=== PATIENT | female | born 1955 | race African-American/Black ===

== ENCOUNTER 2018-09-16 16:05 | Emergency (ER) | payer SELFPAY ==
[~2018-09-16] VITALS: Ht 170.2 cm; Wt 86.4 kg
[2018-09-16 16:09] VITALS: BP 191/81; PULSE 76; TEMP 98.9
[2018-09-16] MEDS ORDERED: GLUCOPHAGE500 MG/TAB PO (16:24)
[2018-09-16] MEDS ORDERED: NORCO 325 MG-51 TAB PO (17:21)
[2018-09-16] MEDS ORDERED: FLEXERIL 1010 MG/TAB PO (17:21)
== END 2018-09-16 17:42 | disposition home or self-care (01) ==
LOC: COL.ER 16:05
DX: S09.90XA Unspecified injury of head, initial encounter (principal); S02.31XA Fracture of orbital floor, right side, initial encounter for closed fracture; S13.4XXA Sprain of ligaments of cervical spine, initial encounter; E11.9 Type 2 diabetes mellitus without complications; Z79.84 Long term (current) use of oral hypoglycemic drugs; V89.2XXA Person injured in unspecified motor-vehicle accident, traffic, initial encounter

== ENCOUNTER 2021-02-06 08:57 | Day surgery (SDC) | payer OTHER ==
[~2021-02-06] VITALS: Ht 170.2 cm; Wt 89.9 kg
[~2021-02-06 08:57] MED LIST: FLEXERIL 1010 MG/TAB PO; GLUCOPHAGE500 MG/TAB PO; NORCO 325 MG-51 TAB PO
[2021-02-06 09:38] VITALS: BP 159/81; PULSE 68; TEMP 97.6
[2021-02-06] MEDS ORDERED: XALATAN EYE DROPS OU (09:51)
[2021-02-06] MEDS ORDERED: OMEGA-3 1000 MG1 CAP PO (09:53)
[2021-02-06] MEDS ORDERED: OSCAL 500 TAB500 MG PO (09:53)
[2021-02-06] MEDS ORDERED: ONE-A-DAY ESSE1 EACH PO (09:54)
[2021-02-06] MEDS ORDERED: VITAMINC1000TA PO (09:54)
[2021-02-06] MEDS ORDERED: GLUCOSAMINE & C1 TAB PO (09:55)
[2021-02-06] MEDS ORDERED: TURMERIC-TAMAR250 MG PO (09:56)
[2021-02-06 10:55] VITALS: BP 132/80; PULSE 65; TEMP 97.6
--- NOTE | 2021-02-06 10:55 | NUR ---
PATIENT TRANSPORTED PER CART FROM PROCEDURE ROOM TO BAY 4 ACCOMPANIED BY ENDO RN. PATIENT AMBULATED FROM CART TO CHAIR WITH SLOW STEADY GAIT. MONITORS REAPPLIED. VSS. NO FAMILY IN ROOM. DR NIEVES ARRIVES AND SPEAKS WITH PATIENT.WHEN DONE PATIENT AMBULATED TO RESTROOM WITH 1 ASSIST.
[2021-02-06 11:10] VITALS: BP 142/91; PULSE 63
--- NOTE | 2021-02-06 11:10 | NUR ---
PATIENT AMBULATED BACK TO ROOM WITH STEADY GAIT. VOIDS WITHOUT PROBLEMS. MONITORS RECONNECTED. VSS. PATIENT GIVEN MUFFIN AND COFFEE. PATIENT TALKS ON PHONE WITH FRIEND.
[2021-02-06 11:15] VITALS: BP 123/91; PULSE 61
--- NOTE | 2021-02-06 11:15 | NUR ---
VSS ON ROOM AIR. PATIENT EATS AND DRINKS WITHOUT PROBLEMS. TALKS ON PHONE WITH FRIEND WHO WILL BE PICKING HER UP.
[2021-02-06 11:30] VITALS: BP 129/75; PULSE 61
--- NOTE | 2021-02-06 11:35 | NUR ---
VSS ON ROOM AIR. PATIENT DENIES DISCOMFORT. IV DC'D WITH CATHETER TIP INTACT. PRESSURE AND BANDAGE APPLIED. DISCHARGE INSTRUCTIONS GIVEN VERBAL AND DISCHARGE INFORMATION PACKET GIVEN TO PATIENT. QUESTIONS ANSWERED AND PATIENT VOICED UNDERSTANDING. PATIENT CHANGES INTO STREET CLOTHES. [id number] PATIENT DISCHARGED PER WHEEL CHAIR ACCOMPANIED BY ENDO RN TO POV.
== END 2021-02-06 11:40 | disposition home or self-care (01) ==
LOC: SDCO 08:57
DX: Z12.11 Encounter for screening for malignant neoplasm of colon (principal); K63.5 Polyp of colon; K64.0 First degree hemorrhoids; E11.9 Type 2 diabetes mellitus without complications; Z20.822 Contact with and (suspected) exposure to COVID-19; Z79.84 Long term (current) use of oral hypoglycemic drugs
CPT/HCPCS: J2704; J7120

== ENCOUNTER → 2021-09-25 | Outpatient (CLI) | payer OTHER ==
[~2021-09-25] MED LIST changes: +GLUCOSAMINE & C1 TAB PO; +OMEGA-3 1000 MG1 CAP PO; +ONE-A-DAY ESSE1 EACH PO; +OSCAL 500 TAB500 MG PO; +TURMERIC-TAMAR250 MG PO; +VITAMINC1000TA PO; +XALATAN EYE DROPS OU
== END ==
LOC: COL.RAD 09:45
DX: N18.31 Chronic kidney disease, stage 3a (principal); N28.9 Disorder of kidney and ureter, unspecified